=== PATIENT | male | born 1965 | race Caucasian/White ===

== ENCOUNTER 2024-05-01 08:02 | Emergency (ER) | payer MEDICAID ==
[2024-05-01] MEDS: Sodium Chloride 0.9% 10 ML Syringe FLUSH PRN (08:35)
[2024-05-01] MEDS: HYDROmorphone 1 MG/ML Syringe IVPUSH ONE (08:35)
[2024-05-01] MEDS: Propofol 200 MG/20 ML SDV IVPUSH ONE (09:00)
[2024-05-01] MEDS: HYDROmorphone 0.5 MG/0.5 ML Syringe IVPUSH ONE (10:57)
== END 2024-05-01 11:10 | disposition home or self-care (01) ==
LOC: JD.ED 08:02
DX: S93.04XA Dislocation of right ankle joint, initial encounter (principal); S82.391A Other fracture of lower end of right tibia, initial encounter for closed fracture; S82.831A Other fracture of upper and lower end of right fibula, initial encounter for closed fracture; I10 Essential (primary) hypertension; E78.00 Pure hypercholesterolemia, unspecified; Z86.16 Personal history of COVID-19; Z79.899 Other long term (current) drug therapy; W00.0XXA Fall on same level due to ice and snow, initial encounter; Y92.019 Unspecified place in single-family (private) house as the place of occurrence of the external cause
CPT/HCPCS: 27788; 27842; 73600-26-LT; 73600-LT; 96374; 96376; 99152; 99283-25; 99284; J1171; J2704

== ENCOUNTER 2024-06-17 12:51 | Emergency (ER) | payer SELFPAY | END 2024-06-17 14:00 | disposition home or self-care (01) | LOC: JD.ED 12:51 | DX: G89.18 Other acute postprocedural pain (principal); M25.572 Pain in left ankle and joints of left foot; I10 Essential (primary) hypertension; E78.00 Pure hypercholesterolemia, unspecified; Z79.899 Other long term (current) drug therapy; Z86.16 Personal history of COVID-19 | CPT/HCPCS: 99283 ==

== ENCOUNTER 2024-09-30 23:15 | Emergency (ER) | payer MEDICAID ==
[2024-09-30] MEDS ORDERED: Sodium Chloride 0.9% 10 ML Syringe FLUSH PRN (23:20)
[2024-09-30 23:30] LABS: BASOPHILS ABSOLUTE AUTO 0.1 K/mm3 (0.0-0.2); BASOPHILS PERCENT AUTO 0.9 % (0.0-1.0); EOSINOPHILS ABSOLUTE AUTO 0.2 K/mm3 (0.0-0.4); EOSINOPHILS PERCENT AUTO 2.9 % (0.0-6.0); IMMATURE GRAN ABSOLUTE AUTO 0.02 K/mm3 (0.00-0.05); IMMATURE GRAN PERCENT AUTO 0.2 % (0.0-0.4); LYMPHOCYTES ABSOLUTE AUTO 1.7 K/mm3 (1.0-4.8); LYMPHOCYTES PERCENT AUTO 21.2 % (24.0-44.0); MEAN PLATELET VOLUME 9.6 fl (9.4-12.4); MONOCYTES ABSOLUTE AUTO 0.7 K/mm3 (0.0-0.8); MONOCYTES PERCENT AUTO 8.6 % (0.0-8.0); NEUTROPHILS ABSOLUTE AUTO 5.3 K/mm3 (1.8-7.7); NEUTROPHILS PERCENT AUTO 66.2 % (41.0-71.0); NRBC ABSOLUTE 0.00 (0.00-0.02); NRBC PERCENT 0.0 % (0.0-0.2); PLATELET COUNT,PLT 252 K/mm3 (150-400); RED BLOOD CELL COUNT 4.97 M/mm3 (4.52-5.90); WHITE BLOOD CELL COUNT,WBC 8.06 K/mm3 (3.9-11.3)
[2024-09-30 23:50] LABS: A/G RATIO 1.0 (1-2); ALANINE AMINOTRANSFERASE,ALT 50.0 U/L (16-63); ASPARTATE AMNIOTRANSFERASE,AST 26.0 U/L (15-37); BILIRUBIN TOTAL 0.2 mg/dL (0.2-1.0); BLOOD UREA NITROGEN,BUN 9.0 mg/dL (7-18); CARBON DIOXIDE,CO2 20.0 mEq/L (21-32); CHLORIDE,CL 109.0 mEq/L (98-107); CREATININE 1.0 mg/dL (0.7-1.3); EST CRCL DRUG DOSING (CG) 88.38 mL/min; ESTIMATED GFR 87.0 mL/min (>60); ETHANOL BLOOD MEDICAL 0.18 gm% (0.00); GLUCOSE RANDOM 143.0 mg/dL (70-99); POTASSIUM,K 3.0 mEq/L (3.5-5.1); PROTEIN TOTAL,TP 6.3 g/dl (6.4-8.2); SODIUM,NA 144.0 mEq/L (136-145)
[2024-10-01] MEDS: Acetaminophen/HYDROcodone 325-5 MG Tab PO ONE (00:20)
[2024-10-01] MEDS: Potassium Bicarbonate/Cit Ac 20 MEQ Effervescent Tab PO ONE (00:20)
[2024-10-01 00:48] LABS: BUPRENORPHINE SCREEN,URINE NEGATIVE (CUTOFF=10); METHADONE SCREEN, URINE NEGATIVE (CUT0FF=200); METHAMPHETAMINES SCREEN, URINE NEGATIVE (CUTOFF=500); OXYCODONE SCREEN,URINE PRESUMPTIVE POSITIVE (CUT0FF=100); THC SCREEN,URINE 20 NG/ML NEGATIVE (CUTOFF=50)
[2024-10-01 00:51] LABS: AMPHETAMINES SCREEN, URINE NEGATIVE (CUTOFF=500)
== END 2024-10-01 00:30 | disposition home or self-care (01) ==
LOC: JD.ED 23:15
DX: S09.90XA Unspecified injury of head, initial encounter (principal); M25.561 Pain in right knee; F10.129 Alcohol abuse with intoxication, unspecified; I10 Essential (primary) hypertension; E78.00 Pure hypercholesterolemia, unspecified; Z79.899 Other long term (current) drug therapy; Z86.16 Personal history of COVID-19; W01.198A Fall on same level from slipping, tripping and stumbling with subsequent striking against other object, initial encounter; Y93.89 Activity, other specified
CPT/HCPCS: 36415; 70450; 71045; 72125; 73110; 73562; 80053; 80306; 80307; 83735; 85025; 93005; 99285; A9270; 93010; 99283

== ENCOUNTER 2024-10-03 12:41 | Emergency (ER) | payer MEDICAID ==
[2024-10-03] MEDS ORDERED: Sodium Chloride 0.9% 10 ML Syringe FLUSH STA (12:48)
[2024-10-03] MEDS: Acetaminophen/HYDROcodone 325-10 MG Tab PO ONE (14:10)
== END 2024-10-03 14:19 | disposition home or self-care (01) ==
LOC: JD.ED 12:41
DX: S09.90XA Unspecified injury of head, initial encounter (principal); M25.572 Pain in left ankle and joints of left foot; M25.561 Pain in right knee; I10 Essential (primary) hypertension; Z79.899 Other long term (current) drug therapy; Z86.16 Personal history of COVID-19; W19.XXXA Unspecified fall, initial encounter
CPT/HCPCS: 99283; A9270; 99284

== ENCOUNTER 2025-02-11 09:16 | Inpatient (IN) | payer MEDICAID ==
[2025-02-11] MEDS ORDERED: Sodium Chloride 0.9% 10 ML Syringe FLUSH PRN (09:38)
[2025-02-11] MEDS: LORazepam 2 MG/ML SDV IVPUSH ONE (09:54)
[2025-02-11] MEDS: Ondansetron 4 MG/2 ML SDV IVPUSH ONE (09:55)
[2025-02-11 10:05] LABS: BASOPHILS ABSOLUTE AUTO 0.0 K/mm3 (0.0-0.2); BASOPHILS PERCENT AUTO 0.3 % (0.0-1.0); EOSINOPHILS ABSOLUTE AUTO 0.0 K/mm3 (0.0-0.4); EOSINOPHILS PERCENT AUTO 0.0 % (0.0-6.0); IMMATURE GRAN ABSOLUTE AUTO 0.04 K/mm3 (0.00-0.05); IMMATURE GRAN PERCENT AUTO 0.3 % (0.0-0.4); LYMPHOCYTES ABSOLUTE AUTO 0.9 K/mm3 (1.0-4.8); LYMPHOCYTES PERCENT AUTO 6.5 % (24.0-44.0); MEAN PLATELET VOLUME 10.0 fl (9.4-12.4); MONOCYTES ABSOLUTE AUTO 0.7 K/mm3 (0.0-0.8); MONOCYTES PERCENT AUTO 5.1 % (0.0-8.0); NEUTROPHILS ABSOLUTE AUTO 12.0 K/mm3 (1.8-7.7); NEUTROPHILS PERCENT AUTO 87.8 % (41.0-71.0); NRBC ABSOLUTE 0.00 (0.00-0.02); NRBC PERCENT 0.0 % (0.0-0.2); PLATELET COUNT,PLT 364 K/mm3 (150-400); RED BLOOD CELL COUNT 5.89 M/mm3 (4.52-5.90); WHITE BLOOD CELL COUNT,WBC 13.64 K/mm3 (3.9-11.3)
[2025-02-11 10:32] LABS: LACTIC ACID 2.4 mmol/L (0.4-2.0)
[2025-02-11 10:38] LABS: A/G RATIO 0.9 (1-2); ALANINE AMINOTRANSFERASE,ALT 29.0 U/L (16-63); ASPARTATE AMNIOTRANSFERASE,AST 18.0 U/L (15-37); BILIRUBIN TOTAL 0.6 mg/dL (0.2-1.0); BLOOD UREA NITROGEN,BUN 18.0 mg/dL (7-18); CARBON DIOXIDE,CO2 23.0 mEq/L (21-32); CHLORIDE,CL 103.0 mEq/L (98-107); CREATININE 1.2 mg/dL (0.7-1.3); EST CRCL DRUG DOSING (CG) 73.65 mL/min; ESTIMATED GFR 70.0 mL/min (>60); GLUCOSE RANDOM 142.0 mg/dL (70-99); PHOSPHORUS 1.5 mg/dL (2.6-4.7); POTASSIUM,K 3.2 mEq/L (3.5-5.1); PROTEIN TOTAL,TP 8.1 g/dl (6.4-8.2); SODIUM,NA 143.0 mEq/L (136-145); TROPONIN I HIGH SENSITIVITY 6.0 pg/mL (<=76); TSH 0.55 uIU/mL (0.358-3.74)
[2025-02-11] MEDS ORDERED: Naloxone 0.4 MG/ML SDV IVPUSH PRN ×2 (10:38→11:59)
[2025-02-11 10:39] LABS: ETHANOL BLOOD MEDICAL 0.0 gm% (0.00)
[2025-02-11] MEDS: Iopamidol 612 MG/ML 100 ML Bottle IVPUSH ONE (10:53)
[2025-02-11] MEDS: Phosphorus #1 250 MG Tab PO ONE (11:09)
[2025-02-11] MEDS: Potassium Bicarbonate/Cit Ac 20 MEQ Effervescent Tab PO ONE (11:09)
[2025-02-11 12:37] LABS: APPEARANCE,URINE CLEAR (Clear); GLUCOSE,URINE NEGATIVE (Negative); OCCULT BLOOD,URINE NEGATIVE (Negative)
[2025-02-11 12:47] LABS: BUPRENORPHINE SCREEN,URINE NEGATIVE (CUTOFF=10); METHADONE SCREEN, URINE NEGATIVE (CUT0FF=200); METHAMPHETAMINES SCREEN, URINE NEGATIVE (CUTOFF=500); OXYCODONE SCREEN,URINE NEGATIVE (CUT0FF=100); THC SCREEN,URINE 20 NG/ML NEGATIVE (CUTOFF=50)
[2025-02-11 12:50] LABS: AMPHETAMINES SCREEN, URINE NEGATIVE (CUTOFF=500)
[2025-02-11 12:52] LABS: EPITHELIAL CELLS,URINE 0-5 /hpf (0-5)
[2025-02-11] MEDS: cefTRIAXone 1 GM in Water For Injection, Sterile 10 ML IVPUSH ONE (13:04)
[2025-02-11] MEDS: Potassium Phosphates 15 MMOLE in Sodium Chloride 0.9% 250 ML IV ONE (13:12)
[2025-02-11] MEDS: droPERidol 2.5 MG/ML SDV IV ONE (13:56)
[2025-02-11 14:18] LABS: CREATINE KINASE,CK 219.0 U/L (39-308)
[2025-02-11] MEDS ORDERED: Ondansetron 4 MG Tab.DIS PO PRN (15:03)
[2025-02-11] MEDS: Ketorolac 30 MG/ML SDV IVPUSH ONE (17:06)
[2025-02-12 05:48] LABS: BASOPHILS ABSOLUTE AUTO 0.1 K/mm3 (0.0-0.2); BASOPHILS PERCENT AUTO 0.8 % (0.0-1.0); EOSINOPHILS ABSOLUTE AUTO 0.1 K/mm3 (0.0-0.4); EOSINOPHILS PERCENT AUTO 0.8 % (0.0-6.0); IMMATURE GRAN ABSOLUTE AUTO 0.03 K/mm3 (0.00-0.05); IMMATURE GRAN PERCENT AUTO 0.4 % (0.0-0.4); LYMPHOCYTES ABSOLUTE AUTO 1.4 K/mm3 (1.0-4.8); LYMPHOCYTES PERCENT AUTO 18.3 % (24.0-44.0); MEAN PLATELET VOLUME 9.9 fl (9.4-12.4); MONOCYTES ABSOLUTE AUTO 0.7 K/mm3 (0.0-0.8); MONOCYTES PERCENT AUTO 9.6 % (0.0-8.0); NEUTROPHILS ABSOLUTE AUTO 5.2 K/mm3 (1.8-7.7); NEUTROPHILS PERCENT AUTO 70.1 % (41.0-71.0); NRBC ABSOLUTE 0.00 (0.00-0.02); NRBC PERCENT 0.0 % (0.0-0.2); RED BLOOD CELL COUNT 4.64 M/mm3 (4.52-5.90); WHITE BLOOD CELL COUNT,WBC 7.36 K/mm3 (3.9-11.3)
[2025-02-12 05:51] LABS: PLATELET COUNT,PLT 252 K/mm3 (150-400)
[2025-02-12 06:16] LABS: A/G RATIO 0.8 (1-2); ALANINE AMINOTRANSFERASE,ALT 22.0 U/L (16-63); ASPARTATE AMNIOTRANSFERASE,AST 17.0 U/L (15-37); BILIRUBIN TOTAL 0.4 mg/dL (0.2-1.0); BLOOD UREA NITROGEN,BUN 13.0 mg/dL (7-18); CARBON DIOXIDE,CO2 25.0 mEq/L (21-32); CHLORIDE,CL 109.0 mEq/L (98-107); CREATININE 0.9 mg/dL (0.7-1.3); EST CRCL DRUG DOSING (CG) 98.2 mL/min; ESTIMATED GFR 99.0 mL/min (>60); GLUCOSE RANDOM 110.0 mg/dL (70-99); POTASSIUM,K 3.1 mEq/L (3.5-5.1); PROTEIN TOTAL,TP 5.9 g/dl (6.4-8.2); SODIUM,NA 144.0 mEq/L (136-145)
[2025-02-12] MEDS: Acetaminophen/Butalbital/Caffeine 325-50-40 MG Tab PO ONE (09:56)
[2025-02-12] MEDS: Potassium Chloride 20 MEQ Tab.ER PO ONE (09:57)
[2025-02-12] MEDS: cefTRIAXone 1 GM in Water For Injection, Sterile 10 ML IVPUSH SCH (13:11)
== END 2025-02-12 15:20 | disposition home or self-care (01) | DRG 871 ==
LOC: JD.ED 09:16 → JD.MS 13:28
PROVIDERS: ADMIT Family Medicine; ATTEND Internal Medicine
DX: A41.9 Sepsis, unspecified organism (principal); J18.9 Pneumonia, unspecified organism; E87.20 Acidosis, unspecified; R65.20 Severe sepsis without septic shock; M79.10 Myalgia, unspecified site; I10 Essential (primary) hypertension; E78.5 Hyperlipidemia, unspecified; F17.200 Nicotine dependence, unspecified, uncomplicated; E78.00 Pure hypercholesterolemia, unspecified; F41.9 Anxiety disorder, unspecified; E87.6 Hypokalemia; E83.39 Other disorders of phosphorus metabolism; Z79.899 Other long term (current) drug therapy; Z86.16 Personal history of COVID-19; Z98.890 Other specified postprocedural states
CPT/HCPCS: 36415; 71045; 71275; 80053; 80306; 80307; 81001; 82550; 83605 ×2; 83690; 83735; 84100; 84443; 84484; 85025; 85379; 86140; 87040 ×2; 87428; 96361; 96374; 96375; 96376; 99285; A9270 ×3; J0696; J2060; J2270 ×2; J2405; J7030 ×3; Q9967; 70450; 70450-26; 94667; 94760; 94761; 99223; 99239; J0456; J1650; J1790; J1885; J2765; J7050